=== PATIENT | female | born 1935 | race Caucasian/White ===

== ENCOUNTER 2021-09-06 07:50 | Emergency (ER) | payer MEDICARE ==
[2021-09-06] MEDS ORDERED: Sodium Chloride 0.9% 10 ML Syringe FLUSH PRN (08:07)
[2021-09-06] MEDS ORDERED: Aspirin 81 MG Tab.Chew PO ONE (08:08)
[2021-09-06] MEDS ORDERED: Ketorolac 15 MG/ML SDV IVPUSH ONE (08:08)
[2021-09-06 08:40] LABS: PTT,PARTIAL THROMBOPLSTIN TIME 24.7 SEC (25.6-32.8)
[2021-09-06 08:48] LABS: CHLORIDE,CL 107 mmol/L (98-107); SODIUM,NA 142 mmol/L (136-145)
[2021-09-06 08:52] LABS: ANION GAP 14.8 mmol/L (5-15)
[2021-09-06] MEDS ORDERED: fentaNYL 50 MCG/ML SDV IVPUSH ONE (09:06)
--- NOTE | 2021-09-06 09:13 | EDM.PDOC ---
ED HPI GENERAL MEDICAL PROBLEM - General Chief Complaint: Back Pain or Injury Stated Complaint: BACK PAIN AND NAUSIA Time Seen by Provider: 09/06/21 08:04 Source of Information: Reports: Patient - History of Present Illness INITIAL COMMENTS - FREE TEXT/NARRATIVE: Honey is an 85 y/o female who comes to the ER with complaints of pain in her left upper quadrant region that radiates to the left flank region. Reports the pain started about 24 hours ago. Denies any trauma or falls. No fever. Concerned that she is having an NI since the pain is now radiating into the left side of her back. Left Lower Back Pain Score (Numeric/FACES): 8 - Related Data Allergies Allergy/AdvReac Type Severity Reaction Status Date / Time CATS AND DOGS Allergy Itching Uncoded 09/06/21 08:09 Home Meds: Home Meds Albuterol Sulfate [Proair Hfa] 2 puff INH Q4H PRN 09/02/14 [History] Anastrozole [Arimidex] 1 tab PO DAILY 09/02/14 [History] Aspirin [Halfprin] 1 tab PO DAILY 09/02/14 [History] Budesonide/Formoterol Fumarate [Symbicort 80-4.5 MCG] 2 puff INH BID 09/02/14 [History] Calcium Carbonate/Vitamin D3 [Calcium Carbonate/Vitamin D 1250 MG-400 Unit] 1 tab PO DAILY 09/02/14 [History] Cholecalciferol (Vitamin D3) [Vitamin D3] 1 tab PO DAILY 09/02/14 [History] Methimazole [Tapazole] 0.5 tab PO DAILY 09/02/14 [History] Multivitamin with Minerals [Multiple Vitamin] 1 tab PO DAILY 09/02/14 [History] Naphazoline HCl/Pheniramine [Opcon-A Eye Drops] 1 drop OP ASDIRECTED PRN 09/02/14 [History] Sennosides/Docusate Sodium [Senna Plus Tablet] 3 tab PO DAILY 09/02/14 [History] Triamterene/Hydrochlorothiazid [Dyazide 37.5-25] 1 cap PO DAILY 09/02/14 [History] atorvaSTATin [Lipitor] 10 mg PO BEDTIME 09/02/14 [History] polyethylene glycoL 3350 [MiraLAX] 17 gm PO DAILY PRN 09/02/14 [History] traMADol [Ultram] 50 mg PO Q8H PRN #10 tablet 09/06/21 [Rx] Social & Family History - Tobacco Use Tobacco Use Status *Q: Unknown Ever Used Tobacco Review of Systems - Review of Systems Review Of Systems: See Below Constitutional: Reports: No Symptoms Eyes: Reports: No Symptoms Ears: Reports: No Symptoms Nose: Reports: No Symptoms Mouth/Throat: Reports: No Symptoms Respiratory: Reports: No Symptoms Cardiovascular: Reports: No Symptoms GI/Abdominal: Reports: Abdominal Pain Genitourinary: Reports: No Symptoms Musculoskeletal: Reports: Back Pain, Other (left rib pain along waistline) Skin: Reports: No Symptoms Neurological: Reports: No Symptoms Psychiatric: Reports: No Symptoms ED EXAM, GENERAL - Physical Exam Exam: See Below General Appearance: Alert, WD/WN, No Apparent Distress (Elderly female, neatly dressed and pleasant.) Ears: Hearing Grossly Normal Nose: Normal Inspection, Normal Mucosa Throat/Mouth: Normal Inspection, Normal Lips, Normal Oropharynx, Normal Voice Head: Atraumatic, Normocephalic Neck: Supple Respiratory/Chest: No Respiratory Distress, Lungs Clear, Other (Note tenderness along left lower rib cage region that wraps around to left flank, no injury or brusing apparent) Cardiovascular: Normal Peripheral Pulses, Regular Rate, Rhythm, No Murmur GI/Abdominal: Normal Bowel Sounds, Soft, Tender (LUQ) (Female) Exam: Deferred Rectal (Female) Exam: Deferred Back Exam: CVA Tenderness (L) Extremities: Normal Inspection, Normal Range of Motion, No Pedal Edema, Normal Capillary Refill Neurological: Alert, Oriented, CN II-XII Intact, Normal Cognition, No Motor/Sensory Deficits Psychiatric: Normal Affect, Normal Mood Skin Exam: Warm, Dry, Intact, Normal Color, No Rash #1 Interpretation EKG Date: 09/06/21 Time: 07:50 Rhythm: NSR Rate (Beats/Min): 75 [place]: Normal P-Wave: Enlarged QRS: Normal ST-T: Normal QT: Normal EKG Interpretation Comments: SR Course - Vital Signs Text/Narrative:: 0804 The patient was seen by the [facility] [employer] [employer]. Labs and EKG ordered. She was given ASA 324mg po x 1 dose. Doubt ACS, but will review labs. Toradol 15mg IVP ordered for pain. 0915 Some pain relief, but still having pain along LUQ and rig region that wraps around to flank region. UA pending. CT ordered to exclude renal calculi. Other labs reviewed, no acute findings. 1045 Note UA trace intact blood, ketones, does not appear infectious. CT reviewed, no renal stone noted (See final report). Suspect degenerative pain, but ruled out cardiac or renal stone. Will treat pt pain meds and supportive cares. Written instructions given and the patient left the ER in stable condition with her daughter. Last Recorded V/S: Last Vital Signs Temp 36.1 C 09/06/21 07:50 Pulse 73 09/06/21 09:02 Resp 16 09/06/21 09:02 BP 140/105 H 09/06/21 10:34 Pulse Ox 98 09/06/21 09:02 - Orders/Labs/Meds Orders: Active Orders 24 hr Category Date Time Status Sodium Chloride 0.9% [Saline Flush] Med 09/06/21 08:07 Active 10 ml FLUSH ASDIRECTED PRN Saline Lock Insert [OM.PC] Stat Oth 09/06/21 08:07 Ordered Medication Orders Sodium Chloride (Sodium Chloride 0.9% 10 Ml Syringe) 10 ml FLUSH ASDIRECTED PRN PRN Reason: Keep Vein Open Labs: Laboratory Tests 09/06/21 09/06/21 09/06/21 Range/Units 08:18 08:18 08:18 WBC 7.7 (4.0-10.0) x10^3/uL RBC 4.34 (4.00-5.50) x10^6/uL Hgb 13.6 (12.0-16.0) g/dL Hct 39.0 (33.0-47.0) % MCV 89.9 (78.0-93.0) fL MCH 31.3 (26.0-32.0) pg MCHC 34.9 (32.0-36.0) g/dL RDW Coeff of Sharlene 12.9 (10.0-15.0) % Plt Count 169 (130-400) x10^3/uL Immature Gran % (Auto) 0.00 (0.00-0.43) % Neut % (Auto) 76.7 (50.0-80.0) % Lymph % (Auto) 13.1 L (25.0-50.0) % [place] % (Auto) 6.9 (2.0-11.0) % Eos % (Auto) 2.7 (0.0-4.0) % Baso % (Auto) 0.6 (0.2-1.2) % Neut # (Auto) 5.9 (1.8-7.7) x10^3/uL Lymph # (Auto) 1.0 (1.0-4.8) x10^3/uL [place] # (Auto) 0.5 (0.0-0.8) x10^3/uL Eos # (Auto) 0.2 (0.0-0.5) x10^3/uL Baso # (Auto) 0.1 (0.0-0.2) x10^3/uL Immature Gran # (Auto) 0.00 (0.00-0.07) x10^3/uL PT 10.7 (9.9-12.5) SEC INR 1.0 L (2.0-3.5) APTT 24.7 L (25.6-32.8) SEC Sodium 142 (136-145) mmol/L Potassium 3.8 (3.5-5.1) mmol/L Chloride 107 (98-107) mmol/L Carbon Dioxide 24 (21-32) mmol/L Anion Gap 14.8 (5-15) mmol/L BUN 18 (7-18) mg/dL Creatinine 0.9 (0.55-1.02) mg/dL Est Cr Clr Drug Dosing TNP Estimated GFR (MDRD) 60 Glucose 113 H (70-99) mg/dL Calcium 8.9 (8.5-10.1) mg/dL Corrected Calcium 9.3 (8.5-10.1) mg/dL Magnesium 1.9 (1.8-2.4) mg/dL Total Bilirubin 0.5 (0.2-1.0) mg/dL AST 16 (15-37) U/L ALT 16 (14-59) U/L Alkaline Phosphatase 48 (46-116) U/L Troponin I High Sens 7 (<=51) ng/L C-Reactive Protein < 0.2 (<=0.9) mg/dL Total Protein 6.2 L (6.4-8.2) g/dL Albumin 3.5 (3.4-5.0) g/dL Globulin 2.7 Albumin/Globulin Ratio 1.30 Urine Color (YELLOW) Urine Appearance (CLEAR) Urine pH (5.0-8.0) Ur Specific [place] Urine Protein (NEGATIVE) mg/dL Urine Glucose (UA) (NEGATIVE) mg/dL Urine Ketones (NEGATIVE) mg/dL Urine Occult Blood (NEGATIVE) Urine Nitrite (NEGATIVE) Urine Bilirubin (NEGATIVE) Urine Urobilinogen (0.2) EU/dL Ur Leukocyte Esterase (NEGATIVE) Urine RBC (NOT SEEN) /HPF Urine WBC (NOT SEEN) /HPF Ur Squamous Epith Cells (NOT SEEN) /HPF Urine Bacteria (NOT SEEN) /HPF Urine Mucus (NOT SEEN) /LPF 09/06/21 Range/Units 09:16 WBC (4.0-10.0) x10^3/uL RBC (4.00-5.50) x10^6/uL Hgb (12.0-16.0) g/dL Hct (33.0-47.0) % MCV (78.0-93.0) fL MCH (26.0-32.0) pg MCHC (32.0-36.0) g/dL RDW Coeff of Sharlene (10.0-15.0) % Plt Count (130-400) x10^3/uL Immature Gran % (Auto) (0.00-0.43) % Neut % (Auto) (50.0-80.0) % Lymph % (Auto) (25.0-50.0) % [place] % (Auto) (2.0-11.0) % Eos % (Auto) (0.0-4.0) % Baso % (Auto) (0.2-1.2) % Neut # (Auto) (1.8-7.7) x10^3/uL Lymph # (Auto) (1.0-4.8) x10^3/uL [place] # (Auto) (0.0-0.8) x10^3/uL Eos # (Auto) (0.0-0.5) x10^3/uL Baso # (Auto) (0.0-0.2) x10^3/uL Immature Gran # (Auto) (0.00-0.07) x10^3/uL PT (9.9-12.5) SEC INR (2.0-3.5) APTT (25.6-32.8) SEC Sodium (136-145) mmol/L Potassium (3.5-5.1) mmol/L Chloride (98-107) mmol/L Carbon Dioxide (21-32) mmol/L Anion Gap (5-15) mmol/L BUN (7-18) mg/dL Creatinine (0.55-1.02) mg/dL Est Cr Clr Drug Dosing Estimated GFR (MDRD) Glucose (70-99) mg/dL Calcium (8.5-10.1) mg/dL Corrected Calcium (8.5-10.1) mg/dL Magnesium (1.8-2.4) mg/dL Total Bilirubin (0.2-1.0) mg/dL AST (15-37) U/L ALT (14-59) U/L Alkaline Phosphatase (46-116) U/L Troponin I High Sens (<=51) ng/L C-Reactive Protein (<=0.9) mg/dL Total Protein (6.4-8.2) g/dL Albumin (3.4-5.0) g/dL Globulin Albumin/Globulin Ratio Urine Color Yellow (YELLOW) Urine Appearance Clear (CLEAR) Urine pH 7.0 (5.0-8.0) Ur Specific [place] 1.025 Urine Protein Trace H (NEGATIVE) mg/dL Urine Glucose (UA) Negative (NEGATIVE) mg/dL Urine Ketones 15 H (NEGATIVE) mg/dL Urine Occult Blood Trace-intact H (NEGATIVE) Urine Nitrite Negative (NEGATIVE) Urine Bilirubin Negative (NEGATIVE) Urine Urobilinogen 0.2 (0.2) EU/dL Ur Leukocyte Esterase Negative (NEGATIVE) Urine RBC 0-5 (NOT SEEN) /HPF Urine WBC 0-5 (NOT SEEN) /HPF Ur Squamous Epith Cells Occasional H (NOT SEEN) /HPF Urine Bacteria Rare (NOT SEEN) /HPF Urine Mucus Occasional H (NOT SEEN) /LPF Meds: Medications Generic Name Dose Route Start Last Admin Trade Name Freq PRN Reason Stop Dose Admin Sodium Chloride 10 ml 09/06/21 08:07 Sodium Chloride 0.9% 10 Ml Syringe FLUSH ASDIRECTED PRN Keep Vein Open Discontinued Medications Generic Name Dose Route Start Last Admin Trade Name Freq PRN Reason Stop Dose Admin Aspirin 324 mg 10/27/21 08:08 09/06/21 08:00 Aspirin 81 Mg Tab.Chew PO 09/06/21 08:09 324 mg ONETIME ONE Administration Fentanyl 25 mcg 09/06/21 09:06 09/06/21 09:27 Fentanyl 50 Mcg/Ml Sdv IVPUSH 09/06/21 09:07 25 mcg ONETIME ONE Administration Ketorolac Tromethamine 15 mg 09/06/21 08:08 09/06/21 08:15 Ketorolac 15 Mg/Ml Sdv IVPUSH 09/06/21 08:09 15 mg ONETIME ONE Administration Departure - Departure Time of Disposition: 10:42 Disposition: Home, Self-Care 01 Condition: Good Clinical Impression: Left flank pain - Discharge Information *PRESCRIPTION DRUG MONITORING PROGRAM REVIEWED*: No *COPY OF PRESCRIPTION DRUG MONITORING REPORT IN PATIENT CASANDRA: No Prescriptions: traMADol [Ultram] 50 mg PO Q8H PRN #10 tablet PRN Reason: Pain (Moderate 4-6) Instructions: Flank Pain, Adult Referrals: Gladys Alvarado MD [Primary Care Provider] - Forms: ED Department Discharge Additional Instructions: -Tramadol 50 mg oral every 8 hours as needed for severe pain #10 (Rx) -Acetaminophen 325mg 2 tablets oral every 4-6 hours as needed for pain -Ibuprofen 200mg 2 tablets oral every 6 hours as needed for pain -Use ice/heat as needed for comfort to left flank region -If pain persists in the next few days, follow up with Dr Alvarado for recheck -Return to the ER as needed Sepsis Event Note (ED) - Focused Exam Vital Signs: Vital Signs Temp Pulse Resp BP Pulse Ox 09/06/21 10:34 140/105 H 09/06/21 09:02 73 16 160/103 H 98 09/06/21 07:50 36.1 C 75 16 189/113 H 96 - My Orders Last 24 Hours: My Active Orders 09/06/21 08:07 Sodium Chloride 0.9% [Saline Flush] 10 ml FLUSH ASDIRECTED PRN Saline Lock Insert [OM.PC] Stat - Assessment/Plan Last 24 Hours: My Active Orders 09/06/21 08:07 Sodium Chloride 0.9% [Saline Flush] 10 ml FLUSH ASDIRECTED PRN Saline Lock Insert [OM.PC] Stat
--- NOTE | 2021-09-06 09:19 | CR ---
[id number] RAD/RAD Chest PA or AP 1V EXAM: RAD Chest PA or AP 1V INDICATION: PAIN WITH INSPIRATION. COMPARISON: None. DISCUSSION: Cardiomediastinal silhouette is normal in size and contour. No infiltrate, effusion, pneumothorax, or edema. Pulmonary hyperinflation. Surgical clips overlying the right axilla. No radiographic evidence of acute rib fracture. IMPRESSION: No acute cardiopulmonary abnormality. lFy Mullins DO 09/06/21 0918 Thank you for allowing us to participate in the care of your patient.
--- NOTE | 2021-09-06 10:20 | CT ---
[id number] CT/CT Abdomen Pelvis WO IV EXAM: CT Abdomen Pelvis WO IV INDICATION: RULE OUT KIDNEY STONE. COMPARISON: None. DISCUSSION: Cardiomegaly. Small pericardial effusion. Mild linear scarring or atelectasis in the lung bases, right greater than left. No renal/ureteral calculi or hydronephrosis. There are scattered left renal cysts the largest of which measures approximately 20 mm in diameter. A thick-walled appearance of the urinary bladder could be from incomplete distention, chronic outlet obstruction or cystitis. Coarse calcifications within the uterus and a lobular contour compatible with leiomyomata. Atherosclerotic plaque scattered throughout the aorta and its major branches with mild ectasia of the infrarenal abdominal aorta. A subcentimeter hypodensity in the spleen is too small to further characterize. A splenic calcification is most suggestive of a benign granuloma. The appendix is not identified and per patient report has been removed. Numerous diverticula of the colon without evidence of diverticulitis. Unenhanced images of the gallbladder, liver, pancreas, adrenal glands, and small bowel are unremarkable. No adenopathy, or free air. Minimal free fluid in the pelvis. 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 Mild L3 compression fracture. Degenerative changes throughout the spine. Convex left curvature centered in the upper lumbar spine. IMPRESSION: 1. No renal/ureteral calculus or hydronephrosis. 2. A thick-walled appearance of the urinary bladder is nonspecific but could relate to incomplete distention or cystitis. Consider correlation with urinalysis. 3. Small pericardial effusion. Corey Moreland MD 09/06/21 1019 Thank you for allowing us to participate in the care of your patient.
== END 2021-09-06 10:56 | disposition home or self-care (01) ==
LOC: VM.ED 07:50
DX: R10.9 Unspecified abdominal pain (principal); Z91.09 Other allergy status, other than to drugs and biological substances; Z79.82 Long term (current) use of aspirin; Z79.899 Other long term (current) drug therapy
CPT/HCPCS: 36415; 71045; 74176; 80053; 81001; 83735; 84484; 85025; 85610; 85730; 86140; 93005; 93010; 96374; 96375; 99284; 99284-25; A9270-GY; J1885; J3010

== ENCOUNTER 2022-12-03 16:55 | Emergency (ER) | payer MEDICARE ==
[2022-12-03] MEDS: Sodium Chloride 0.9% 10 ML Syringe FLUSH PRN (17:19)
[2022-12-03 17:43] LABS: PTT,PARTIAL THROMBOPLSTIN TIME 24.3 SEC (20.5-30.9)
[2022-12-03 17:49] LABS: ANION GAP 15.1 mmol/L (5-15)
[2022-12-03] MEDS: Aspirin 81 MG Tab.Chew PO ONE (18:59)
== END 2022-12-03 20:58 | disposition short-term general hospital (02) ==
LOC: VM.ED 16:55
DX: G45.9 Transient cerebral ischemic attack, unspecified (principal); E78.00 Pure hypercholesterolemia, unspecified; I10 Essential (primary) hypertension; Z79.899 Other long term (current) drug therapy; Z79.82 Long term (current) use of aspirin
CPT/HCPCS: 70450; 80053; 81001; 83735; 84100; 84443; 84484; 85025; 85610; 85730; 87086; 87088; 87186; 93005; 93010; 99285; A9270-GY; J3490

== ENCOUNTER 2023-08-03 10:14 | Emergency (ER) | payer MEDICARE ==
[2023-08-03 11:22] LABS: CORONAVIRUS COVID-19 NAA POSITIVE (NEGATIVE); INFLUENZA A NAA NEGATIVE (NEGATIVE); INFLUENZA B NAA NEGATIVE (NEGATIVE); RESPIRATORY SYNCYTIAL VIR NAA NEGATIVE (NEGATIVE)
== END 2023-08-03 11:37 | disposition home or self-care (01) ==
LOC: VM.ED 10:14
DX: U07.1 COVID-19 (principal); I10 Essential (primary) hypertension; E78.00 Pure hypercholesterolemia, unspecified; Z79.899 Other long term (current) drug therapy; Z86.16 Personal history of COVID-19; Z91.09 Other allergy status, other than to drugs and biological substances
CPT/HCPCS: 0241U; 87651-QW; 99283; 99284

== ENCOUNTER 2024-04-05 08:03 | Emergency (ER) | payer MEDICARE, OTHER ==
[2024-04-05] MEDS: Albuterol 0.083% 2.5 MG/3 ML Neb Soln NEB ONE (08:38)
[2024-04-05] MEDS: Dexamethasone 4 MG/ML SDV IM ONE (09:05)
== END 2024-04-05 09:10 | disposition home or self-care (01) ==
LOC: VM.ED 08:03
DX: J45.21 Mild intermittent asthma with (acute) exacerbation (principal); I10 Essential (primary) hypertension; E78.00 Pure hypercholesterolemia, unspecified; Z91.048 Other nonmedicinal substance allergy status; Z79.51 Long term (current) use of inhaled steroids; Z79.82 Long term (current) use of aspirin; Z79.899 Other long term (current) drug therapy; Z86.73 Personal history of transient ischemic attack (TIA), and cerebral infarction without residual deficits; Z86.16 Personal history of COVID-19
CPT/HCPCS: 71045; 94640; 96372; 99285; J1100; J7613-GY